=== PATIENT | male | born 1950 | race Hispanic/Latino ===

== ENCOUNTER 2017-06-12 07:46 | Day surgery (SDC) | payer OTHER ==
[2017-06-03 12:24] VITALS: BMI 27.1
[2017-06-12] MEDS ORDERED: Midazolam 2 MG/2 ML VIAL ONE (11:07)
[2017-06-12] MEDS ORDERED: Propofol 10 mg/ml Inj (20 ML) ONE (11:07)
[2017-06-12] MEDS ORDERED: Sodium Chloride 0.9% 1,000 ML IV SCH (11:30)
[2017-06-12 12:02] VITALS: O2SAT 99
[2017-06-12 12:21] VITALS: BP 154/78; PULSE 64; RESP 18; TEMP 97.4
== END 2017-06-12 12:53 | disposition home or self-care (01) ==
LOC: ENDO 07:46
PROVIDERS: ATTEND Internal Medicine Gastroenterology
DX: D12.2 Benign neoplasm of ascending colon (principal); K57.30 Diverticulosis of large intestine without perforation or abscess without bleeding; K64.8 Other hemorrhoids
CPT/HCPCS: 45380; 88305; J2250; J2704; J7040 ×2

== ENCOUNTER 2018-06-09 16:22 | Observation (INO) | payer OTHER ==
[2018-06-09] MEDS ORDERED: Sodium Chloride 0.9% 1,000 ML IV SCH (17:00)
[2018-06-09 17:05] VITALS: BMI 27.8
--- NOTE | 2018-06-09 17:14 | ED PDOC ---
Arrival/HPI - General Chief Complaint: Eye Problem Time Seen by Provider: 06/09/18 16:35 Historian: Patient - History of Present Illness Narrative History of Present Illness (Text): 06/09/18 17:10 67 yo M w/ PMH of CVA in 2012, presents c/o sudden onset of blurry vision to the L eye which lasted for a few seconds and resolved on its own spontaneously. 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 He took a break and walked around and his symptoms subsided. His vision is normal now. Denies any focal weakness/numbness, facial droop, diaphoresis, SOB, dyspnea, palpitations, headache, dizziness, fever, URI, N/V, abdominal pain, back pain. He adds when he had his first TIA he was kept in the hospital for observation, imaging test were done and was Rx asa, which he takes daily at night, last dose taken was last night. PMD [place] Past Medical History - Past History Past History: No Previous - Infectious Disease Hx of Infectious Diseases: None - Tetanus Immunization Tetanus Immunization: Unknown - Cardiac Hx Pacemaker: No - Neurological HX Cerebrovascular Accident: Yes Hx Paralysis: No - Hematological/Oncological Hx Blood Transfusions: No - Musculoskeletal/Rheumatological Hx Musculoskeletal Disorders: No - Psychiatric Hx Emotional Abuse: No Hx Physical Abuse: No Hx Substance Use: No - Surgical History Hx Splenectomy: Yes - Anesthesia Hx Anesthesia Reactions: No Hx Malignant Hyperthermia: No - Suicidal Assessment Feels Threatened In Home Enviroment: No Family/Social History Family/Social History: No Known Family HX Smoking Status: Never Smoked Hx Alcohol Use: Yes (social) Hx Substance Use: No Allergies/Home Meds Allergies/Adverse Reactions: Allergies No Known Allergies Allergy (Verified 04/27/13 07:44) Home Medications: Home Meds Medication Instructions Recorded Confirmed Aspirin [Aspir 81] 81 mg PO DAILY 04/28/13 06/12/17 Review of Systems - Review of Systems Constitutional: absent: Fatigue, Fevers Eyes: Vision Changes Respiratory: absent: SOB, Cough Cardiovascular: absent: Chest Pain, Palpitations, Edema Gastrointestinal: absent: Abdominal Pain, Diarrhea, Vomiting Genitourinary Male: absent: Dysuria, Frequency Musculoskeletal: absent: Arthralgias, Back Pain, Neck Pain Skin: absent: Rash, Pruritis, Skin Lesions Neurological: absent: Headache, Dizziness, Focal Weakness Physical Exam Vital Signs Temp Pulse Resp BP Pulse Ox 06/09/18 18:35 98.2 F 06/09/18 17:50 88 18 134/73 99 Temperature: Afebrile Blood Pressure: Normal Pulse: Regular Respiratory Rate: Normal Appearance: Positive for: Well-Appearing, Non-Toxic, Comfortable Pain Distress: None Mental Status: Positive for: Alert and Oriented X 3 - Systems Exam Head: Present: Atraumatic, Normocephalic Pupils: Present: PERRL Extroacular Muscles: Present: EOMI Conjunctiva: Present: Normal Mouth: Present: Moist Mucous Membranes Pharnyx: Present: Normal Neck: Present: Normal Range of Motion Respiratory/Chest: Present: Clear to Auscultation, Good Air Exchange. No: Respiratory Distress, Accessory Muscle Use Cardiovascular: Present: Regular Rate and Rhythm, Normal S1, S2. No: Murmurs Abdomen: No: Tenderness, Distention, Peritoneal Signs Back: Present: Normal Inspection Upper Extremity: Present: Normal Inspection, Normal ROM. No: Cyanosis, Edema Lower Extremity: Present: Normal Inspection, Normal ROM. No: Edema Neurological: Present: GCS=15, CN II-XII Intact, Speech Normal, Motor Func Grossly Intact, Normal Sensory Function, Normal Cerebellar Funct, Norm Deep Tendon Reflexes, Gait Normal, Memory Normal Skin: Present: Warm, Dry, Normal Color. No: Rashes Psychiatric: Present: Alert, Oriented x 3, Normal Insight, Normal Concentration Medical Decision Making ED Course and Treatment: 06/09/18 17:07 Plan : - IV - Labs - EKG - CXR - CT head - machine gunner - Asa PO 06/09/18 19:46 EKG : NSR at 62 bpm, no acute ST changes, as read by MATTHEW CXR : NAD, as read by MATTHEW Labs reviewed : trop (-) CT head : FINDINGS: HEMORRHAGE: No intracranial hemorrhage. BRAIN: Adkins-white matter differentiation is preserved. There is no mass, mass effect or abnormal extra-axial fluid collection. There is no territorial infarction. The midline sagittal structures are normal. VENTRICLES: The ventricles are normal in size, shape and configuration. CALVARIUM: The skull base and calvarium are normal. PARANASAL SINUSES: There is a retention cyst/ polyp in the right frontal sinus and mild mucosal thickening in the left ethmoid air cells. The remaining included paranasal sinuses are predominantly clear. MASTOID AIR CELLS: Predominantly clear. OTHER FINDINGS: None. IMPRESSION: No acute intracranial abnormality. If there is a persistent focal neurologic deficit and an ongoing clinical concern for acute infarction, an MRI of the brain without intravenous contrast would be a more sensitive modality for evaluation of hyperacute/acute ischemic infarction. On reevaluation, patient states that he feels well, has no complaints at this time. On exam, patient remains awake alert and oriented 3 in no acute distress. Repeat neuro exam shows no focal findings. Case d/w Dr. Ku, agrees to tele obs with consult o Dr. Torres. Patient notified of plan for further tele obs, which he agrees to. - Lab Interpretations Lab Results: 06/09/18 17:20 06/09/18 17:20 Lab Results 06/09/18 17:28: POC Glucose (mg/dL) 103 06/09/18 17:20: Blood Type O POSITIVE, Antibody Screen Negative, BBK History Checked No verified bt 06/09/18 17:20: Sodium 143, Potassium 3.8, Chloride 103, Carbon Dioxide 30, Anion Gap 14, BUN 16, Creatinine 0.7 L, Est GFR ( Amer) > 60, Est GFR ( Non-Af Amer) > 60, Random Glucose 98, Calcium 8.8, Total Bilirubin 0.5, AST 26, ALT 37, Alkaline Phosphatase 69, Troponin I < 0.01, Total Protein 7.4, Albumin 4.1, Globulin 3.3, Albumin/Globulin Ratio 1.2, Triglycerides 93, Cholesterol 101 L, LDL Cholesterol Direct 42, HDL Cholesterol 40 06/09/18 17:20: PT 14.0 H, INR 1.22, APTT 33.5 06/09/18 17:20: WBC 8.5, RBC 3.94, Hgb 13.2 L, Hct 39.1 L, MCV 99.2, MCH 33.5, MCHC 33.8, RDW 13.8, Plt Count 251, MPV 10.6, Gran % 58.3, Lymph % (Auto) 27.3, [place] % (Auto) 12.5 H, Eos % (Auto) 1.2 L, Baso % (Auto) 0.7, Gran # 4.95, Lymph # (Auto) 2.3, [place] # (Auto) 1.1 H, Eos # (Auto) 0.1, Baso # (Auto) 0.06 - RAD Interpretation Radiology Orders: 06/09/18 16:50 CHEST PORTABLE [RAD] Stat 06/09/18 16:55 HEAD W/O CONTRAST [CT] Stat 06/09/18 18:45 BRAIN WITHOUT CONTRAST [MRI] Routine - Medication Orders Current Medication Orders: Aspirin (Ecotrin) 81 mg PO DAILY MARIELLE Sodium Chloride (Sodium Chloride 0.9%) 1,000 mls @ 100 mls/hr IV .Q10H MARIELLE Last Admin: 06/09/18 17:47 Dose: 100 mls/hr eMAR Start Stop Document 06/09/18 17:47 GMD (Rec: 06/09/18 17:47 GMD [id number]) Intravenous Solution Start Date 06/09/18 Start Time 17:47 Discontinued Medications Aspirin (Aspirin Chewable) 81 mg PO STAT STA Stop: 06/09/18 19:52 NIHSS Stroke Scale 3 - Date/Time Evaluation Performed Date Performed: 06/09/18 Time Performed: 16:40 When Was NIHSS Performed: Baseline - How Severe is the Stroke Level of Consciousness: 0=Alert LOC to Questions: 0=Both comments correct LOC to commands: 0=Obeys both correctly Best Gaze: 0=Normal Visual: 0=No visual loss Facial: 0=Normal Motor Arm - Left: 0=No drift Motor Arm - Right: 0=No drift Motor Leg - Left: 0=No drift Motor Leg - Right: 0=No drift Limb Ataxia: 0=Absent Sensory: 0=Normal Best Language: 0=No aphasia Dysarthia: 0=Normal articulation Extinction & Inattention (Neglect): 0=Normal, no object Score: 0 - PA / MANAGER PART / Resident Statement MD/DO has reviewed & agrees with the documentation as recorded. Disposition/Present on Arrival - Present on Arrival Any Indicators Present on Arrival: No History of DVT/PE: No History of Uncontrolled Diabetes: No Urinary Catheter: No History of Decub. Ulcer: No History Surgical Site Infection Following: None - Disposition Have Diagnosis and Disposition been Completed?: Yes Diagnosis: TIA (transient ischemic attack) Disposition: HOSPITALIZED Disposition Time: 18:48 Patient Plan: Telemetry (obs) Patient Problems: Current Active Problems Problem Status Onset TIA (transient ischemic attack) Acute Condition: STABLE
[2018-06-09 17:57] LABS: BASO # 0.06 K/mm3 (0.0-2.0); BASO % 0.7 % (0.0-3.0); EOS # 0.1 (0.0-0.7); EOS % 1.2 % (1.5-5.0); GRAN # 4.95 (1.4-6.5); GRAN % 58.3 % (50.0-68.0); HEMOGLOBIN 13.2 g/dL (14.0-18.0); LYMPH # 2.3 (1.2-3.4); LYMPH % 27.3 % (22.0-35.0); MEAN CELL VOLUME 99.2 fl (80.0-105.0); MEAN CORPUSCULAR HEMOGLOBIN 33.5 pg (25.0-35.0); MEAN CORPUSCULAR HGB CONC 33.8 g/dl (31.0-37.0); MEAN PLATELET VOLUME 10.6 fl (7.0-11.0); MONO # 1.1 (0.1-0.6); MONO % 12.5 % (1.0-6.0); RBC 3.94 10^6/uL (3.5-6.1); RED CELL DISTRIBUTION WIDTH 13.8 % (11.5-14.5); WHITE BLOOD COUNT 8.5 10^3/ul (4.5-11.0)
[2018-06-09 18:02] LABS: ALB/GLOB RATIO 1.2 (1.1-1.8); ALBUMIN 4.1 g/dL (3.0-4.8); ALT/SGPT 37 U/L (7-56); AST/SGOT 26 U/L (17-59); BLOOD UREA NITROGEN 16 mg/dL (7-21); CALCIUM 8.8 mg/dL (8.4-10.5); GFR AFRICAN-AMERICAN > 60; GFR NON-AFRICAN AMERICAN > 60; HDL CHOLESTEROL 40 mg/dL (29-60)
[2018-06-09 18:03] LABS: INR 1.22; PARTIAL THROMBOPLASTIN TIME 33.5 Seconds (25.1-36.5)
[2018-06-09 18:14] LABS: LDL CHOLESTEROL 42 mg/dL (0-129)
--- NOTE | 2018-06-09 18:19 | RAD ---
Date of service: 06/09/2018 HISTORY: Code Stroke COMPARISON: 04/27/2013. FINDINGS: LUNGS: The lungs are well inflated and clear. PLEURA: No significant pleural effusion identified, no pneumothorax apparent. CARDIOVASCULAR: Normal. OSSEOUS STRUCTURES: No significant abnormalities. VISUALIZED UPPER ABDOMEN: Normal. OTHER FINDINGS: None. IMPRESSION: No active pulmonary disease.
[2018-06-09 18:20] LABS: TROPONIN I < 0.01 ng/mL
--- NOTE | 2018-06-09 18:23 | CT ---
Date of service: 06/09/2018 PROCEDURE: CT HEAD WITHOUT CONTRAST. HISTORY: L eye blurry vision COMPARISON: 04/27/2013. TECHNIQUE: Axial computed tomography images were obtained through the head/brain without intravenous contrast. Radiation dose: Total exam DLP = mGy-cm. This CT exam was performed using one or more of the following dose reduction techniques: Automated exposure control, adjustment of the mA and/or kV according to patient size, and/or use of iterative reconstruction technique. FINDINGS: HEMORRHAGE: No intracranial hemorrhage. BRAIN: Adkins-white matter differentiation is preserved. There is no mass, mass effect or abnormal extra-axial fluid collection. There is no territorial infarction. The midline sagittal structures are normal. VENTRICLES: The ventricles are normal in size, shape and configuration. CALVARIUM: The skull base and calvarium are normal. PARANASAL SINUSES: There is a retention cyst/ polyp in the right frontal sinus and mild mucosal thickening in the left ethmoid air cells. The remaining included paranasal sinuses are predominantly clear. MASTOID AIR CELLS: Predominantly clear. OTHER FINDINGS: None. IMPRESSION: No acute intracranial abnormality. If there is a persistent focal neurologic deficit and an ongoing clinical concern for acute infarction, an MRI of the brain without intravenous contrast would be a more sensitive modality for evaluation of hyperacute/acute ischemic infarction.
[2018-06-09 21:09] VITALS: RESP 19
--- NOTE | 2018-06-10 09:14 | MRI ---
Date of service: 06/09/2018 PROCEDURE: MRI BRAIN WITHOUT CONTRAST HISTORY: TIA COMPARISON: Noncontrast head CT from 06/09/2018 TECHNIQUE: Multiplanar, multisequence MR images of the brain were obtained without intravenous contrast enhancement. FINDINGS: HEMORRHAGE: None DWI: There is a focal area of restricted diffusion in the right parieto-occipital watershed territory. BRAIN PARENCHYMA: There is mild T2/FLAIR hyperintense signal corresponding to restricted diffusion in the right parieto-occipital lobe. There is an old infarction in the left posterior parietal subcortical white matter and right paramedian posterior parietal lobe. VENTRICLES: There is mild age-related global parenchymal volume loss and proportionate enlargement of the ventricles and cortical sulci. CRANIUM: There is normal bone marrow signal pattern. ORBITS: Normal in appearance. PARANASAL SINUSES/MASTOIDS: There is a retention cyst/ polyp in the right maxillary sinus, a smaller retention cyst/ polyp in the right frontal sinus and mild mucosal thickening in the ethmoid air cells. VASCULAR SYSTEM: There are normal signal voids in the larger intracranial arteries. OTHER FINDINGS: None. IMPRESSION: Acute right parieto-occipital watershed territory infarction. Old infarctions in the right paramedian parietal lobe and left posterior subcortical white matter. A preliminary report was provided by [facility] services.
[2018-06-10 09:17] VITALS: BP 124/68; TEMP 98; O2SAT 98
--- NOTE | 2018-06-10 11:40 | CON ---
Copied To: Bruce Torres MD Attending MD: Bruce Torres MD DATE: 06/10/2018 NEUROLOGY CONSULT CHIEF COMPLAINT: Transient left eye visual loss. HISTORY OF PRESENT ILLNESS: This is a 67-year-old man with history of CVA in 2012, hypertension, dyslipidemia, who came in with sudden onset of blurry vision in the left eye and a left visual field cut, lasting a few seconds, which was responded spontaneously on its own when he came to the ER. He works as a pharmacist in the hospital. Currently, he has no longer any blurry vision or any visual field cut. No motor or focal weakness or paresthesia of the extremities. Walking around with a therapist without any difficulty. He underwent an MRI of the brain, which showed an acute right parietooccipital watershed territory infarction and also showed old infarction in the right paramedian parietal lobe and left posterior subcortical white matter. The patient does take an aspirin 81 mg daily and Lipitor. Currently, no focal deficits on neuro exam. PAST MEDICAL HISTORY: As above. SOCIAL HISTORY: No illicit drug use, smoking or EtOH abuse. ALLERGIES: NO KNOWN DRUG ALLERGIES. MEDICATIONS: Reviewed by nurses' reconciliation sheet. REVIEW OF SYSTEMS: Fourteen-point review of systems is negative except as per the HPI. LABORATORY DATA: Sodium 142, potassium 3.8, chloride 103, carbon dioxide 30, BUN is 16, creatinine 0.7, random glucose 103, LDL is 42, total cholesterol is 101. PHYSICAL EXAMINATION: VITAL SIGNS: Temperature 98, pulse rate of 84, blood pressure of 124/68, respiratory rate of 19, oxygen saturation of 98% by room air. GENERAL: The patient is sitting up in bed, in no acute distress. HEENT: Atraumatic, normocephalic. PERRLA. Extraocular muscles intact. NECK: Supple. No JVD, no adenopathy noted. LUNGS: Clear to auscultation. No adventitious sounds. HEART: S1, S2. Normal rate and rhythm. No murmurs, rubs or gallops. ABDOMEN: Soft, nontender and nondistended. Bowel sounds are present. EXTREMITIES: No clubbing. No cyanosis. Peripheral pulses 2+ felt bilaterally. NEUROLOGIC: The patient is alert and oriented to person, place, month and year. Speech is fluent without any errors. Cranial nerves II through XII intact. Motor exam: Moves all extremities equally. No pronator drift seen. Sensory exam: Light touch, pinprick, proprioception and vibration are intact. DTRs are 2+ throughout. Coordination: [id number] intact. Gait is normal. Romberg negative. ASSESSMENT AND PLAN: This is a 67-year-old man with history of old infarctions in the right paramedian parietal lobe and left posterior subcortical white matter with no significant deficits, history of hypertension and dyslipidemia. Came in with acute onset of transient left eye visual loss, which is likely secondary to an acute right parietooccipital watershed territory infarction secondary to diffuse atherosclerotic disease. At this time, we will recommend, 1. Aspirin 81 and Plavix 75 mg and Lipitor 80 mg for stroke prevention. 2. Avoid sudden drops in blood pressure and keep systolic blood pressure between 130s-140s systolic and diastolic 70-80s. 3. Will follow up as an outpatient with me in a few weeks. He is clinically stable. Physical Therapy has assessed the patient. We will get a homocysteine level and B12 level. Thank you for this consult. Bruce Torres MD
--- NOTE | 2018-06-10 13:16 | HP ---
Copied To: Héctor Ku MD Attending MD: Héctor Ku MD CHIEF COMPLAINT AND HISTORY OF PRESENT ILLNESS: This is a 67-year-old male who is coming into the hospital because of left-sided visual changes. 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 He has a history of having a CVA in 2012, in which he had full recovery. The patient states he was working on his computer and had difficulty in seeing some letters at the beginning of words, he states he took a break and did some walking. He was trying to read other words that were in the vicinity of his work area and was having difficulty in seeing letters of first words. Immediately, he went to the Emergency Room because he conservative approach to the stroke. The patient had no other focal weakness. He has no dysarthria, dysphagia. He had no blurred vision. He had no weakness to the arms or in the legs. He has no fevers or chills. No back pain. He had no abdominal pain. No dysuria or frequency. REVIEW OF SYSTEMS: All other review of symptoms are within normal limits except what was mentioned. ALLERGIES: NO KNOWN DRUG ALLERGIES. HOME MEDICATIONS: Aspirin. SURGICAL HISTORY: Splenectomy. PAST MEDICAL HISTORY: CVA. Left posterior frontal lobe infarct. SOCIAL HISTORY: He does not smoke. He denies drug use. He drinks socially. He works as a pharmacist at [employer]. FAMILY HISTORY: His mother had TIA at 60 and MS, at 61; father had colon cancer, at 54. PHYSICAL EXAMINATION: VITAL SIGNS: Patient has a temperature of 98.7, pulse of 55, blood pressure is 142/74, respirations 19, O2 saturation 99%. His initial NIH scale score was zero. LABORATORY DATA: White count of 6.5, hemoglobin 13.2. Creatinine is 0.7. All other labs were reviewed. Chest x-ray done shows no infiltrates. CT of the head done shows no acute intracranial abnormalities. EKG done shows sinus rhythm at [address]-T wave changes. MRI of the brain that I reviewed showed that there is a right posterior occipital lobe CVA. ASSESSMENT: 1. Acute cerebrovascular accident right posterior occipital lobe. 2. Dyslipidemia. 3. History of left frontal lobe infarct. PLAN: The patient is going to be admitted to the hospital. He has an LDL of 42. He does not require statin therapy. He has been given aspirin in the Emergency Room. His NIH scale was zero. He did not require tPA. I did speak to ER doctor to go over the case. I also spoke with Dr. Torres for consultation. He is aware of the patient. I also spoke with the patient to give an update on his diagnosis and plan of care. He will continue his aspirin for now. He has been placed on Lipitor. He was given IV fluids. I will discontinue his IV fluids at this point and will have physical therapy to evaluate the patient. He is going to be on a regular diet. I did review the MRI myself and I will await for final results from the radiologist. Héctor Ku MD
[2018-06-10 14:22] VITALS: PULSE 61
--- NOTE | 2018-06-10 15:13 | CARD ---
APPROVED REPORT Date of service: 06/09/2018 EKG Measurement Heart [id number] [id number] <Conclusion> Normal sinus rhythm Normal ECG
[2018-06-10] MEDS ORDERED: Pneumococcal 23-Valent Vaccine IM ONE (15:14)
--- NOTE | 2018-06-10 17:33 | US ---
PROCEDURE: Bilateral carotid artery duplex ultrasound HISTORY: Carotid stenosis CVA PHYSICIAN(S): Rodolfo Gibson MD. TECHNIQUE: Duplex sonography and color-flow Doppler were used to evaluate the carotid bifurcations and limited segments of the vertebral arteries bilaterally. FINDINGS: There is moderate smooth heterogeneous plaque noted at the carotid bifurcations bilaterally. The peak systolic velocity in the proximal right internal carotid artery is 198 cm/sec. This corresponds to a 60-79 percent proximal right ICA stenosis. Normal systolic velocities are noted in the proximal right external carotid artery. There is antegrade flow in the right vertebral artery. The peak systolic velocity in the proximal left internal carotid artery is 125 cm/sec. This corresponds to a 40-59 percent proximal left ICA stenosis. Normal systolic velocities are noted in the proximal left external carotid artery. There is antegrade flow in the left vertebral artery. IMPRESSION: 1. 60-79 percent proximal right ICA stenosis. 2. 40-59 percent proximal left ICA stenosis. 3. Antegrade flow in both vertebral arteries.
== END 2018-06-10 16:37 | disposition home or self-care (01) ==
LOC: ED 16:22 → ERH 18:48 → 3RSO 20:40
PROVIDERS: ADMIT Internal Medicine Nephrology; ATTEND Internal Medicine Nephrology
DX: I63.9 Cerebral infarction, unspecified (principal); I10 Essential (primary) hypertension; E78.5 Hyperlipidemia, unspecified; R29.700 NIHSS score 0; Z79.82 Long term (current) use of aspirin; Z86.73 Personal history of transient ischemic attack (TIA), and cerebral infarction without residual deficits; Z90.81 Acquired absence of spleen
CPT/HCPCS: 36415; 70450; 70551; 71045; 80053; 80061; 82607; 82948; 83090; 84484; 85025; 85610; 85730; 86850; 86900; 90471; 90732; 93005; 93880; 97116; 97161; 99285; G0378; G8978; G8979; G8980; J7030

== ENCOUNTER 2019-01-07 15:37 | Outpatient (CLI) | payer OTHER | END 2019-01-07 15:38 | disposition home or self-care (01) | LOC: RAD 15:37 ==

== ENCOUNTER 2019-03-11 14:42 | Outpatient (CLI) | payer MEDICARE | END 2019-03-11 14:43 | disposition home or self-care (01) | LOC: LAB 14:42 ==

== ENCOUNTER 2019-03-14 07:21 | Outpatient (CLI) | payer MEDICARE | END 2019-03-14 07:22 | disposition home or self-care (01) | LOC: RAD 07:21 ==